=== PATIENT | female | born 1995 | race Caucasian/White ===

== ENCOUNTER 2019-04-24 07:24 | Inpatient (IN) ==
[2019-04-24] MEDS ORDERED: LACTATED RINGER'S 1,000 ML IV PRN (07:39)
[2019-04-24] MEDS ORDERED: OXYTOCIN 30 UNITS/500 ML BAG IV PRN ×2 (07:39→12:33)
--- NOTE | 2019-04-24 07:45 | History & Physical Report ---
Date of Service April 24, 2019 Assessment & Plan (1) Normal labor: fetus category one. clear srom. expectant management. anticipate . (2) IUGR (intrauterine growth restriction): efw 5-6 #. Fetus category one. Will make peds aware. History of Present Illness Chief Complaint: leaking fluid Primary Care Provider: NO PCP Patient is a 23yowf [id number] with iup at 38+weeks with affected by suspected iugr. She was in the office yesterday for prolonged monitoring and was category one. This am she noted gross rom, clear. Has continued to note some intermittent contractions. no vb. +fm. testing has overall been reassuring for this patient. labs--A+/ab-/rprnr/ri/hepb-/hiv-/gc-/ ct+ at intake/gtt nl/gbs neg/ct at 36 weeks neg Had isolated LEF on ultrasound. low risk panorama. Allergies Allergy/AdvReac Type Severity Reaction Status Date / Time No Known Drug Allergies Allergy Verified 04/23/19 15:48 Home Medications Home Medications Medication Instructions Recorded Confirmed Type prenat.vits,johnny,tly-dfio-cemyh 1 tab PO DAILY 12/04/18 04/23/19 History Patient History Family History (Updated 12/04/18 @ 14:48 by Allison Lorenzo) Father Dyslipidemia Mother Thyroid disease Sister Thyroid disease Aunt Ovarian cancer Social History (Updated 12/04/18 @ 14:50 by Allison Lorenzo) Preferred Language: [place]er marital status: Single marital status details: FOB: Prakash Mcgee (23) [phone] Current Living Situation: Significant Other Current Living Situation Comment: lives with fob, his parents, dogs, cats, family to change litter. current occupational status: employed current occupation: senior windows systems administrator. 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 History recent hx of CT, treated, neg culture at 36 weeks Review of Systems All systems reviewed & are unremarkable except as noted in HPI & below Physical Exam Constitutional: WD/WN, vitals as above Cardiovascular: Extremities: no calf tenderness and no edema Gastrointestinal (Abdomen): soft, gravid, nt Psychiatric: A+Ox3, euthymic affect Genitourinary: cx--5/90/-1 grossly ruptured toco--irregular contractions efm--125 with mod variability, small accels, no decels Results & Data Vital Signs (Past 12 Hours) Vital Signs Pulse BP 04/24/19 07:32 81 124/74 Code Status & VTE Plan VTE Prophylaxis Plan VTE Prophylaxis will be ordered: No
[2019-04-24 08:03] LABS: Hematocrit (blood only) 36.6 % (37-47); Hemoglobin 12.6 g/dL (12.0-16.0); Mean Corpuscular Hemoglobin 30.6 pg (25-34); Mean Corpuscular Volume 88.8 fL (80-100); Mean Platelet Volume 9.3 fL (7.4-10.4); Platelet Count 195 K/uL (130-400); RDW Coefficient of Variation 13.1 % (11.5-14.5); RDW Standard Deviation 42.4 fL (36.4-46.3); Red Blood Count 4.12 M/uL (4.2-5.4); White Blood Count 11.35 K/uL (4.8-10.8)
[2019-04-24 08:06] LABS: Mean Corpuscular Hgb Conc 34.4 g/dL (32-36)
[2019-04-24] MEDS ORDERED: ONDANSETRON INJ 2 MG/ML 2 ML VIAL IV PRN (09:09)
[2019-04-24] MEDS ORDERED: SUPERCREAM 0.870% 15 GM JAR EXT PRN (12:33)
[2019-04-24] MEDS ORDERED: ACETAMINOPHEN 325 MG TAB PO PRN (12:33)
[2019-04-24] MEDS ORDERED: HYDROCORTISONE ACETATE 25 MG SUPP PR PRN (12:33)
[2019-04-24] MEDS ORDERED: bisacodyL 10 MG SUPP PR PRN (12:33)
[2019-04-24] MEDS ORDERED: DIPHTHERIA/TETANUS/PERTUSSIS 0.5 ML SYR/VIAL IM ONE (12:33)
[2019-04-24] MEDS ORDERED: BENZOCAINE 20% AER SPR 82.5 GM CAN EXT PRN (12:33)
--- NOTE | 2019-04-24 13:25 | Delivery Summary ---
DATE OF OPERATION: 04/24/2019 PROCEDURE: Normal spontaneous vaginal delivery. SURGEON: Rohit Castellon MD. PREOPERATIVE DIAGNOSES: 1. Single intrauterine at 38 weeks gestational age. 2. IUGR. 3. Labor. POSTOPERATIVE DIAGNOSES: 1. Single intrauterine at 38 weeks gestational age. 2. IUGR. 3. Labor. 4. Status post delivery. ESTIMATED BLOOD LOSS: 300 mL DRAINS: None. FLUIDS: Continuous lactated ringer. URINE OUTPUT: Not measured. COMPLICATIONS: None. FINDINGS: Viable female with weight pending and Apgars of 8 and 9 at 1 and 5 minutes respectively. INDICATIONS: Agnieszka is a 23-year-old G2, P0-0-1-0, admitted at 38+ weeks gestational age for rupture of membranes in labor. At initial evaluation, the patient was found to be 5 cm dilated, 90% effaced, -1 station. She progressed in labor without further augmentation to complete-complete +1 station, at which time she felt the urge to push. The patient pushed under an hour to achieve delivery. DESCRIPTION OF PROCEDURE: The patient progressed to 10 cm dilated, 100% effaced, +2 station, pushed over intact perineum with epidural without anesthesia and delivered a viable female with weight and Apgars as noted above. Head of the delivered in JUDSON position, rest into right transverse. No nuchal cord was noted. Body and shoulders quickly followed. was noted to be vigorous immediately after delivery. A 1-minute delayed cord clamping was initiated, after which the cord was double clamped and cut. Cord blood was then obtained. Attention was then turned to deliver the placenta, which was delivered intact, 3-vessel cord, gentle cord traction. On inspection of the perineum, vagina, and cervix, there was noted to be no lacerations. Sponge and instrument counts were correct at the completion of the case. Both mother and were stable in the immediate post-delivery. I attest to the content of the Intraoperative Record and any orders documented therein. Any exception s are noted below.
[2019-04-24] MEDS: IBUPROFEN 600 MG TAB PO PRN ×2 (13:29→19:42)
[2019-04-24] MEDS ORDERED: DOCUSATE SODIUM 100 MG CAP ONE (19:38)
[2019-04-24] MEDS: DOCUSATE SODIUM 100 MG CAP PO SCH (19:42)
[2019-04-25] MEDS: IBUPROFEN 600 MG TAB PO PRN ×3 (05:08→19:44)
[2019-04-25 06:14] LABS: Hematocrit (blood only) 34.3 % (37-47); Hemoglobin 11.7 g/dL (12.0-16.0)
[2019-04-25] MEDS: DOCUSATE SODIUM 100 MG CAP PO SCH ×2 (07:59→19:44)
[2019-04-25] MEDS: PRENATAL VITAMIN 1 TAB PO SCH (07:59)
--- NOTE | 2019-04-25 08:27 | Obstetrical Progress Note ---
Date of Service April 25, 2019 Assessment & Plan (1) Normal labor: 23yo sp day 1 - Doing well. Routine care Day #:: 1 Subjective Ambulation: ambulating normally Voiding: no voiding problems Passing Gas:: Yes Diet Tolerance:: regular diet Lochia:: Small Feeding Type:: breast feeding Current Pain Level(1-10): 2 Physical Exam Constitutional WD/WN, vitals as above Respiratory normal respiratory effort; no respiratory distress and no labored breathing Gastrointestinal (Abdomen) Inspection/Auscultation: abdomen normal to inspection; abdomen not distended Percussion/Palpation: abdomen soft; abdomen nontender, no guarding and abdomen not rigid Genitourinary OB Exam Abdomen: + fundal height Fundus: + firm and + relation to umbilicus (Below); not tender and not boggy Results & Data Vital Signs (Past 12 Hours) Vital Signs Temp Pulse Resp BP 04/25/19 07:30 36.8 C 66 18 102/65
[2019-04-25] MEDS ORDERED: bisacodyL 5 MG TABEC PO SCH (20:00)
--- NOTE | 2019-04-26 06:22 | Obstetrical Progress Note ---
Date of Service <Yahaira Talamantes DO - Last Filed: 04/26/19 07:15> April 26, 2019 Assessment & Plan <Yahaira Talamantes DO - Last Filed: 04/26/19 07:15> (1) Encounter for care and examination after delivery: 23 yo PPD #2 after at 38+ weeks: - Doing well from OB standpoint; however Babygirl discharge pending Pediatrics given weight loss of 8%. - For follow up with Dr. Castellon in 6 weeks. - Answered all patient questions and went over discharge instructions. Subjective <Yahaira Talamantes DO - Last Filed: 04/26/19 07:15> Hattie is a 23 yo female ; PPD # 2 following vaginal delivery at 38+ weeks; doing well this AM; no abdominal cramping/pain; voiding well, passing gas but no BM; tolerating meals overnight, able to ambulate some within the room. Some persistent spotting this morning but improved from yesterday. Baby girl born at 5.8 lbs and was 5.1 yesterday; was encouraged to feed numerous times overnight and pt was diligent about it. Review of Systems Constitutional: denies fever, chills, sweats, headache Respiratory: denies SOB, difficulty breathing Cardiac: denies CP, chest palpitations, chest pressure Breast: denies breast pain : denies dysuria Physical Exam <Yahaira Talamantes DO - Last Filed: 04/26/19 07:15> General: patient is alert and oriented, in NAD Cardiac: +S1/S2, no murmurs rubs or gallops Respiratory: lungs CTA b/l, anteriorly and posteriorly, no wheezes rales or rhonchi, no increased work of breathing, symmetric chest rise, no respiratory distress Abdomen: soft, NT, +bowel sounds Uterus: uterine fundus firm, palpable below the level of the umbilicus Lower Extremities: no LE edema or swelling, no deep calf pain, Ricky's sign negative b/l Results & Data <Yahaira Talamantes DO - Last Filed: 04/26/19 07:15> Vital Signs (Past 12 Hours) Vital Signs Temp Pulse Resp BP Pulse Ox 04/25/19 23:20 36.7 C 87 18 107/66 95 04/25/19 19:15 36.6 C 68 20 103/68 98 Medications Administered Current Medications Acetaminophen (Tylenol) 650 mg PO Q6H PRN PRN Reason: Pain/SANCHEZ/Fever Stop: 05/24/19 12:32 Benzocaine (Dermoplast Pain Relieving [place]) 1 appln EXT PRN PRN PRN Reason: Perineal Discomfort Stop: 05/24/19 12:32 Last Admin: 04/24/19 19:43 Dose: 82.5 appln Documented by: Bisacodyl (Dulcolax) 10 mg HI DAILY PRN PRN Reason: No BM on 2nd post- day Stop: 05/24/19 12:32 Cocaine HCl (Supercream 0.870%) 1 gm EXT BID PRN PRN Reason: Hemorrhoidal Inflammation Stop: 05/08/19 12:32 Docusate Sodium (Colace) 100 mg PO DAILY@08,21 WALDEMAR Stop: 05/24/19 20:59 Last Admin: 04/25/19 19:44 Dose: 100 mg Documented by: Hydrocortisone (Anusol Hc) 25 mg HI BID PRN PRN Reason: Hemorrhoidal Inflammation Stop: 05/24/19 12:32 Lactated Ringer's (Lr) 1,000 mls @ 125 mls/hr IV .Q8H PRN; Protocol PRN Reason: L&D Protocol Stop: 04/26/19 07:38 Oxytocin (Pitocin) 30 units in 500 mls @ 333.333 mls/hr IV .Q1H30M PRN; Protocol PRN Reason: Bleeding Control Stop: 05/24/19 07:38 Last Admin: 04/24/19 12:25 Dose: 59.94 units/hr, 999 mls/hr Documented by: Oxytocin (Pitocin) 30 units in 500 mls @ 333.333 mls/hr IV .Q1H30M PRN; Protocol PRN Reason: Bleeding Control Ibuprofen (Motrin) 600 mg PO Q4H PRN PRN Reason: Pain/SANCHEZ/Cramping/Fever Stop: 05/24/19 12:32 Last Admin: 04/25/19 19:44 Dose: 600 mg Documented by: Ondansetron HCl (Zofran) 4 mg IV Q4H PRN PRN Reason: Nausea Stop: 05/24/19 09:08 Last Admin: 04/24/19 09:53 Dose: 4 mg Documented by: Manas Multivit/Owsley/Iron/Folic Ac ( Vitamin) 1 tab PO DAILY@08 WALDEMAR Stop: 05/25/19 07:59 Last Admin: 04/25/19 07:59 Dose: 1 tab Documented by: <Rohit Castellon MD - Last Filed: 04/26/19 07:49> Co-Signing Physician Notes Patient doing well and stable for discharge Resident Activity Tracking <Yahaira Talamantes DO - Last Filed: 04/26/19 07:15> Resident Involvement: Resident Care Provided Care Provided: OB Delivery
[2019-04-26] MEDS: IBUPROFEN 600 MG TAB PO PRN (06:56)
[2019-04-26] MEDS: PRENATAL VITAMIN 1 TAB PO SCH (08:04)
[2019-04-26] MEDS: DOCUSATE SODIUM 100 MG CAP PO SCH (08:04)
== END 2019-04-26 10:32 | disposition home or self-care (01) | DRG 807 ==
LOC: OPB 07:24 → 4S1 07:29 → 4S2 16:32

== ENCOUNTER 2021-01-12 07:40 | Inpatient (IN) ==
[2021-01-12] MEDS ORDERED: OXYTOCIN 30 UNITS/500 ML BAG IV PRN ×3 (07:52→15:10)
[2021-01-12] MEDS ORDERED: LACTATED RINGER'S 1,000 ML IV PRN (08:06)
[2021-01-12 08:34] LABS: Hematocrit (blood only) 33.8 % (37-47); Hemoglobin 11.5 g/dL (12.0-16.0); Mean Corpuscular Hemoglobin 28.8 pg (25-34); Mean Corpuscular Volume 84.7 fL (80-100); Mean Platelet Volume 9.2 fL (7.4-10.4); Platelet Count 205 K/uL (130-400); RDW Coefficient of Variation 13.6 % (11.5-14.5); RDW Standard Deviation 41.6 fL (36.4-46.3); Red Blood Count 3.99 M/uL (4.2-5.4)
--- NOTE | 2021-01-12 10:18 | History & Physical Report ---
Date of Service January 12, 2021 Assessment & Plan (1) Encounter for induction of labor: Plan: Admit pt to L&D for induction of labor. Induction augmented with pitocin. Pt is gbs neg. Arom as indicated. Epidural on demand. Anticipate . Admission and Anticipated Discharge Date Admission Date: January 12, 2021 History of Present Illness Chief Complaint: Induction of Labor Primary Care Provider: NO PCP Hattie Atkinson is a 25 y/o female presenting to L&D for induction of labor due to IUGR. Pt has been feeling fm. GBS neg. No vb or discharge. No contractions as of yet. OB Labs: Blood Type A Positive 07/18/20 Antibody Screen NEGATIVE 07/18/20 Hemoglobin 11.8 g/dL (12.0-16.0) L 10/31/20 Hematocrit 35.8 % (37-47) L 10/31/20 Mean Corpuscular Volume 86.4 fL (80-100) 07/18/20 Platelet Count 273 K/uL (130-400) 07/18/20 Rubella IgG Antibody Immune (Immune) 07/18/20 Rapid Plasma Reagin Nonreactive (Nonreactive) 07/18/20 Hepatitis B Surface Antigen Neg (Neg) 07/18/20 HIV (1&2) Ab and P24 Ag, 4th Gener Neg (Neg) 07/18/20 Glucose 1 Hour 50 gm Load 76 mg/dl (70-130) 10/31/20 OB Optional Labs: Chlamydia trachomatis RNA NOT DETECTED (NOT DETECTED) 07/18/20 Neisseria gonorrhoeae RNA NOT DETECTED (NOT DETECTED) 07/18/20 Labs Reviewed: declines cfdna - SLN declines cf/sma - SLN declines quad/afp - SLN Allergies Allergy/AdvReac Type Severity Reaction Status Date / Time No Known Drug Allergies Allergy Unknown Verified 01/11/21 14:19 Home Medications Medication Instructions Recorded Confirmed Type prenat.vits,johnny,bjc-vbau-ttqmi 1 tab PO DAILY 12/04/18 01/12/21 History ondansetron HCl 4 mg tablet 4 mg PO Q6H PRN #20 tab 07/13/20 01/12/21 Rx (Zofran) Patient History Medical History (Updated 01/12/21 @ 10:36 by Sorin Lau DO) Chicken pox Chlamydia Surgical History History of nasal surgery S/P wisdom tooth extraction Family History (Updated 07/13/20 @ 11:03 by Sonia Wang, OSMEL) Father Dyslipidemia Mother Thyroid disease Cancer Sister Thyroid disease Aunt Ovarian cancer Grandfather (Maternal) Prostate cancer Denies family history of Breast cancer Colorectal cancer Social History (Updated 07/13/20 @ 11:05 by Sonia Wang, OSMEL) Smoking Status: Never smoker Second Hand Exposure: No; Do You Dip or Chew Tobacco: No; Hx Alcohol Use: No Hx Substance Use: No Preferred Language: Mongolian Communication Ability: Effective Front End Ui Developer Required: No Beliefs That Will Affect Care: None marital status: marital status details: FOB: Prakash Mcgee (24) [phone] Current Living Situation: Family Current Living Situation Comment: Lives at home with and daughter. current occupational status: employed current occupation: administrative manager. at [employer] Other Information That Helps Us Care for You: No Feels Safe at Home: Yes Safety Concerns: Feels Safe At This Time Assistive Devices: None Review of Systems All systems reviewed & are unremarkable except as noted in HPI & below Physical Exam Physical Exam: General: Alert, oriented, no acute distress Cardiac: Regular rate and rhythm, normal S1, S2. No murmurs appreciated. Respiratory: Clear to auscultation b/l with good air flow entry, symmetric chest rise and fall. No wheezes or crackles. No increased work of breathing or accessory muscle use Abdomen: Gravid, soft, nontender. No guarding or CVA tenderness Skin: No rashes or lesions Extremities: Warm, dry, well-perfused with capillary refill <2s b/l. No lower extremity edema, erythema or swelling. Negative Ricky's sign b/l. Genitourinary: normal external appearance OB Exam Abdomen: + estimated weight (5-6lbs) Manual OB Exam: + cervical dilation 4 cm, + cervical effacement 80% and + station -2 OB Exam Monitor Tracing: + external FHT monitor used and + category I Results & Data ([place]) Vital Signs (Past 12 Hours) Vital Signs Temp Pulse Resp BP 01/12/21 10:00 84 109/71 01/12/21 09:00 94 H 112/74 01/12/21 08:59 85 119/76 01/12/21 08:26 36.6 C 96 H 16 118/71 01/12/21 08:09 96 H 118/71 Supervising Physician Co-Signing Physician Notes Resident Physician Supervision Note: I interviewed and examined the patient. Discussed with Dr. Lau and agree with findings and plan as documented in the note. Any exceptions or clarifications are listed here: [None] Documented By: Nat Lucero MD, FACOG
[2021-01-12] MEDS ORDERED: CALCIUM CARBONATE 500 MG CHEWABLE TAB PO PRN (11:15)
--- NOTE | 2021-01-12 12:29 | Labor Progress Brief Note ---
Date of Service January 12, 2021 Subjective Doing ok, some cramps Assessment & Plan (1) IUGR (intrauterine growth restriction) affecting care of mother: Plan: 25 y/o at 39 1/7 wga presenting for IOL for FGR VSS Fetus cat 1 Labor - pit at 10, now s/p arom. Continue augmentation GBS neg epidural prn, went unmedicated previously Admission and Anticipated Discharge Date Admission Date: January 12, 2021 Physical Exam Genitourinary: Manual OB Exam: + cervical dilation (4-5), + cervical effacement 80% and + station -2 OB Exam Monitor Tracing: + external FHT monitor used, + external uterine monitor used (q3-5) and + category I (125/mod/+accel/-decel) Results & Data ([facility]) Vital Signs (Past 12 Hours) Vital Signs Temp Pulse Resp BP 01/12/21 12:01 83 103/60 01/12/21 11:01 65 106/64 01/12/21 10:00 84 109/71 01/12/21 09:00 94 H 112/74 01/12/21 08:59 85 119/76 01/12/21 08:26 97.9 F 96 H 16 118/71 01/12/21 08:09 96 H 118/71 Coding Level of Care Code None Diagnoses IUGR (intrauterine growth restriction) affecting care of mother O36.5990
[2021-01-12] MEDS ORDERED: ONDANSETRON INJ 2 MG/ML 2 ML VIAL IV PRN (13:45)
[2021-01-12] MEDS ORDERED: IBUPROFEN 600 MG TAB PO ONE (15:02)
--- NOTE | 2021-01-12 15:02 | Delivery Summary ---
Vaginal Delivery Summary Date of Service January 12, 2021 Vaginal Delivery Summary [facility] PREOPERATIVE DIAGNOSIS: 1. Single intrauterine at 39 1/7 wga 2. growth restriction POSTOPERATIVE DIAGNOSIS: 1. Single intrauterine at 39 1/7 wga 2. growth restriction 3. Delivered PROCEDURE: 1. Normal spontaneous vaginal delivery. SURGEON: Emely Villasenor MD ANESTHESIA: None ESTIMATED BLOOD LOSS: 300 mL FLUIDS: Continuous LR. URINE OUTPUT: None. COMPLICATIONS: None. CONDITION: Stable. INDICATIONS: 25 y/o at 39 1/7 wga presented for IOL for growth restriction. She was started on pitocin. She underwent artificial rupture of membranes and rapidly progressed to complete and desired to push FINDINGS: A viable male , weight pending with Apgars of 8 and 9 at 1 and 5 minutes respectively. SPECIMEN: Cord blood. OPERATIVE REPORT: The patient progressed to 10 cm, 100% effaced and +2 station, pushed over intact perineum with anesthesia to deliver a viable male infant, weight and Apgars as above. Brow presentation was noted as delivering with mentum anterior direction. Loose nuchal cord was present and delivered through. Body and shoulders were delivered without difficulty. was delivered to maternal abdomen and nursing staff. Delayed cord clamping was performed for 60 seconds. Cord was clamped and cut. Cord blood was obtained. Placenta delivered spontaneously intact with 3-vessel cord. IV oxytocin and fundal massage were given for excellent hemostasis. Vagina, cervix, perineum, and placenta were inspected. No lacerations were noted. Sponge and needle counts correct x2. No sponges were left behind. Mother and stable in immediate period. [facility] Vaginal Delivery Charge Vaginal Delivery Codes: 30715 global code for the antepartum, delivery, and post- Delivery Type Details: [facility]
[2021-01-12] MEDS ORDERED: BENZOCAINE 20% AER SPR 82.5 GM CAN EXT PRN (15:10)
[2021-01-12] MEDS ORDERED: bisacodyL 10 MG SUPP PR PRN (15:10)
[2021-01-12] MEDS ORDERED: SUPERCREAM 0.870% 15 GM JAR EXT PRN (15:10)
[2021-01-12] MEDS ORDERED: HYDROCORTISONE ACETATE 25 MG SUPP PR PRN (15:10)
[2021-01-12] MEDS ORDERED: ACETAMINOPHEN 325 MG TAB PO PRN (15:10)
[2021-01-12] MEDS ORDERED: DIPHTHERIA/TETANUS/PERTUSSIS 0.5 ML SYR/VIAL IM ONE (15:10)
[2021-01-12] MEDS ORDERED: LACTATED RINGER'S 1,000 ML IV SCH (15:15)
[2021-01-12] MEDS: IBUPROFEN 600 MG TAB PO PRN (20:15)
[2021-01-12] MEDS: DOCUSATE SODIUM 100 MG CAP PO SCH (20:15)
[2021-01-13] MEDS: IBUPROFEN 600 MG TAB PO PRN ×4 (01:29→14:09)
--- NOTE | 2021-01-13 06:34 | Obstetrical Progress Note ---
Date of Service <Sorin Lau DO - Last Filed: 01/13/21 06:58> January 13, 2021 Assessment & Plan <Sorin Lau - Last Filed: 01/13/21 06:58> (1) Encounter for care and examination after delivery: 25 yo PPD 1 s/p at 39weeks -Continue routine care; complicated by IUGR. D/C today, 24 hours post delivery. -Vitals reviewed- HDS, afebrile -A+, GBS-, Rubella immune -Encourage ambulation, regular diet -Pain control with ibuprofen, acetaminophen PRN -Encouraged -F/u in 6 weeks with OB <Emely Villasenor MD - Last Filed: 01/13/21 08:15> (1) Encounter for care and examination after delivery: Subjective <Sorin Lau - Last Filed: 01/13/21 06:58> Ambulation: ambulating normally Voiding: no voiding problems Passing Gas:: Yes Diet Tolerance:: regular diet Lochia:: Moderate Feeding Type:: breast feeding Current Pain Level(1-10): 4 PPD 1 s/p . Patient seen and examined at bedside. Reports no acute overnight events Review of Systems All systems reviewed & are unremarkable except as noted in HPI & below Physical Exam <Sorin Lau DO - Last Filed: 01/13/21 06:58> General: Alert, oriented, no acute distress Cardiac: Regular rate and rhythm, normal S1, S2. No murmurs appreciated. Respiratory: Clear to auscultation b/l with good air flow entry, symmetric chest rise and fall. No wheezes or crackles. No increased work of breathing or accessory muscle use Abdomen: Soft, nontender, nondistended. Fundus firm and palpable at 1 cm below umbilicus. No guarding or rebound. Skin: No rashes or lesions Extremities: Warm, dry, well-perfused with capillary refill <2s b/l. No lower extremity edema, erythema or swelling. Negative Ricky's sign b/l. Results & Data ([facility]) <Sorin Lau - Last Filed: 01/13/21 06:58> Vital Signs (Past 12 Hours) Vital Signs Temp Pulse Resp BP Pulse Ox 01/13/21 04:50 36.6 C 74 16 97/63 L 98 01/13/21 00:00 36.7 C 75 17 114/67 97 01/12/21 19:58 36.4 C L 71 18 109/70 98 <Emely Villasenor MD - Last Filed: 01/13/21 08:15> Co-Signing Physician Notes Resident Physician Supervision Note: I interviewed and examined the patient. Discussed with Dr. Lau and agree with findings and plan as documented in the note. Any exceptions or clarifications are listed here: PP1 s/p , meeting milestones. Stable for d/c today after 24 hours Documented By: Emely Villasenor MD
[2021-01-13 06:52] LABS: Hematocrit (blood only) 30.9 % (37-47); Hemoglobin 10.3 g/dL (12.0-16.0); Mean Corpuscular Hemoglobin 28.6 pg (25-34); Mean Corpuscular Hgb Conc 33.3 g/dL (32-36); Mean Corpuscular Volume 85.8 fL (80-100); Mean Platelet Volume 9.4 fL (7.4-10.4); Platelet Count 194 K/uL (130-400); RDW Coefficient of Variation 13.7 % (11.5-14.5); RDW Standard Deviation 42.5 fL (36.4-46.3); White Blood Count 14.14 K/uL (4.8-10.8)
[2021-01-13] MEDS ORDERED: PRENATAL VITAMIN 1 TAB PO SCH (08:00)
[2021-01-13] MEDS ORDERED: FERROUS SULFATE 325 MG TAB PO SCH (09:00)
[2021-01-13] MEDS: DOCUSATE SODIUM 100 MG CAP PO SCH (09:17)
[2021-01-13] MEDS ORDERED: bisacodyL 5 MG TABEC PO SCH (20:00)
== END 2021-01-13 15:50 | disposition home or self-care (01) | DRG 807 ==
LOC: 4S1 07:40 → 4S2 17:36

== ENCOUNTER 2022-10-10 07:19 | Inpatient (IN) ==
--- NOTE | 2022-10-10 08:14 | History & Physical Report ---
Date of Service October 10, 2022 Assessment & Plan (1) Encounter for induction of labor: Plan: - Will admit to L&D for IOL. - monitoring started, CBC and COVID test ordered. - Started LR @125ml/hr. - Declines epidural at this time. - Start pit at 1 and increase by 2. - AROM at time of physical exam. (2) IUGR (intrauterine growth restriction) affecting care of mother: Plan: - IUGR in previous 2 pregnancies. Admission and Anticipated Discharge Date Admission Date: October 10, 2022 History of Present Illness Chief Complaint: Induction of Labor Primary Care Provider: NO PCP Patient is a 27 y/o at 39w 1d confirmed via ultrasound. Here for induction of labor. Complications with this include prior pregnancies c/b IUGR. Has been attending OB appointments regularly. Currently taking no medications. Contractions: Started last night around 1700 Fluid or Blood loss: none Movement: active Labs - Blood type: A+ - Antibody screen: negative - H.9 - Hct: 32.8 - Plt: 264 - Rubella: immune - VDRL/RPR: nonreactive - Gonorrhea: negative - Chlamydia: negative - HIV: negative - HbSAg: negative - GBS: negative - Glucose tolerance x 2 Allergies Allergy/AdvReac Type Severity Reaction Status Date / Time No Known Drug Allergies Allergy Unknown Verified 10/10/22 07:36 Home Medications Medication Instructions Recorded Confirmed Type prenat.vits,johnny,ryx-tfvl-xmraz 1 tab PO DAILY 12/04/18 10/10/22 History ondansetron 4 mg disintegrating 4 mg PO Q8H #30 tabs 04/17/22 10/10/22 Rx tablet Patient History Medical History (Updated 10/10/22 @ 08:14 by Jordan Drew DO) Chicken pox Chlamydia as a teenager IUGR (intrauterine growth restriction) affecting care of mother 1st and 2nd Surgical History History of nasal surgery S/P wisdom tooth extraction Family History Father Dyslipidemia Mother Thyroid disease Cancer Sister Thyroid disease Aunt Ovarian cancer Grandfather (Maternal) Prostate cancer Denies family history of Breast cancer Colorectal cancer Social History (Updated 10/10/22 @ 07:35 by Lissett Christopher RN) Smoking Status: Never smoker Second Hand Exposure: No; Do You Dip or Chew Tobacco: No; Hx Alcohol Use: No Hx Substance Use: No Preferred Language: Polish Communication Ability: Effective Plywood Layup Line Core Layer Required: No Beliefs That Will Affect Care: None marital status: marital status details: FOB: Prakash Mcgee (26) [phone] Current Living Situation: Family Current Living Situation Comment: Lives at home with 2 children,2 cats, 1dog, spouse to change litter current occupational status: employed current occupation: program cord.. at [employer] Feels Safe at Home: Yes Safety Concerns: Feels Safe At This Time Assistive Devices: Contacts Review of Systems Denies fever, chills, sweats Denies shortness of breath, difficulty breathing, chest pain, palpitations, chest pressure. Denies breast pain. Denies dysuria. Denies headache or changes in vision. Physical Exam Physical Exam: General: Alert, oriented. No acute distress. Cardiac: Regular rate and rhythm, no murmurs/rubs/gallops. Respiratory: Clear to auscultation bilaterally a/p, no wheezes/rales/rhonchi. No increased work of breathing. Symmetrical chest rise. No respiratory distress. Abdomen: Gravid; 6-7 EFW; cat 1 FHTs; Position: Cephalic position Pelvic: Dilation 6cm; Effacement 100; Station [address] Wick Lower Extremities: No lower extremity edema or swelling. No deep calf pain. Ricky's negative bilaterally Results & Data Vital Signs (Past 12 Hours) Vital Signs Temp Pulse Resp BP 10/10/22 07:30 18 10/10/22 07:30 36.7 C 18 10/10/22 07:28 91 H 126/74 Supervising Physician Co-Signing Physician Notes Resident Physician Supervision Note: I was present with Dr. Drew during the history and exam. I discussed the case with the resident and agree with the findings and plan as documented in the note. Any exceptions or clarifications are listed here: 27yo at 39wks egvinnie presents for planned elective induction of labor. Overnight had some ctx. No rom, no vb. +FM. PNC uncomplicated, did have aga u/s with small fh and prior pregnancies complicated by iugr. Rh pos, ri, gbs neg. Abd soft gravid nt efw 6-7#. ext no edema. sve 6/100/0 arom clear. fhts categ 1. admit, iv, labs. pitocin induction. anticip . Documented By: Kelli Wick MD, FACOG Resident Activity Tracking Resident Involvement: Resident Care Provided Care Provided: OB Delivery
[2022-10-10] MEDS ORDERED: LIDOCAINE 1% LOCAL 20 ML VIAL INFIL PRN (08:17)
[2022-10-10] MEDS ORDERED: OXYTOCIN 30 UNITS/500 ML BAG IV PRN ×3 (08:17→11:36)
[2022-10-10] MEDS ORDERED: LACTATED RINGER'S 1,000 ML IV PRN (08:17)
[2022-10-10 08:54] LABS: Hematocrit (blood only) 32.7 % (37.0-47.0); Hemoglobin 11.2 g/dl (12.0-16.0); Mean Corpuscular Hemoglobin 28.6 pg (25.0-34.0); Mean Corpuscular Hgb Conc 34.3 g/dL (32.0-36.0); Mean Corpuscular Volume 83.4 fL (80.0-100.0); Mean Platelet Volume 8.8 fL (9.4-12.4); Platelet Count 254 K/uL (130-400); RDW Coefficient of Variation 13.1 % (11.5-14.5); RDW Standard Deviation 39.6 fL (36.4-46.3); Red Blood Count 3.92 M/uL (4.20-5.40); White Blood Count 15.28 K/ul (4.8-10.8)
--- NOTE | 2022-10-10 10:59 | Delivery Summary ---
Vaginal Delivery Summary Date of Service October 10, 2022 Vaginal Delivery Summary The patient dilated to complete and pushed to deliver a viable female Apgars 9 and 9 via over intact perineum. Loose nuchal x 1 reduced. Mouth and nose bulb suctioned at perineum. Shoulders and body delivered with ease. was vigorous and crying at . Cord clamped at 30 seconds of life and to maternal abdomen where the cord was then doubly clamped and cut. Placenta delivered spontaneously and intact, three-vessel cord. Hemostasis achieved with dilute pitocin and uterine massage. Cervix and sulci intact. EBL 200 cc. Mother and baby stable in recovery. [facility] Vaginal Delivery Charge Delivery Type Details:
[2022-10-10] MEDS ORDERED: DIPHTHERIA/TETANUS/PERTUSSIS Vaccine (Tdap, Age 7+yrs) 0.5mL SYR/VL IM ONE (11:36)
[2022-10-10] MEDS ORDERED: bisacodyL 10 MG SUPP PR PRN (11:36)
[2022-10-10] MEDS ORDERED: BENZOCAINE 20% AER SPR 82.5 GM CAN EXT PRN (11:36)
[2022-10-10] MEDS ORDERED: HYDROCORTISONE ACETATE 25 MG SUPP PR PRN (11:36)
[2022-10-10] MEDS ORDERED: ACETAMINOPHEN 325 MG TAB PO PRN (11:36)
[2022-10-10] MEDS: DOCUSATE SODIUM 100 MG CAP PO SCH (21:02)
[2022-10-11] MEDS: IBUPROFEN 600 MG TAB PO PRN ×2 (03:29→07:56)
--- NOTE | 2022-10-11 06:30 | Obstetrical Progress Note ---
Date of Service <Jordan Drew DO - Last Filed: 10/11/22 06:30> October 11, 2022 Assessment & Plan <Jordan Drew DO - Last Filed: 10/11/22 06:30> (1) state: - Feels well today. Eating well, voiding well, ambulating well. - Pain well controlled with ibuprofen 600mg Q4H PRN - Routine care -- OOB, ambulation, diet progression as tolerated - After discharge will have 6 week follow-up with Dr. Wick. - Will DC today. Day #:: 1 <Kelli Wick MD, FACOG - Last Filed: 10/11/22 07:14> (1) state: Subjective <Jordan Drew DO - Last Filed: 10/11/22 06:30> Ambulation: ambulating normally Voiding: no voiding problems Passing Gas:: Yes Diet Tolerance:: regular diet Lochia:: Small Feeding Type:: breast feeding Current Pain Level(1-10): 5 Review of Systems Denies fever, chills, sweats Denies shortness of breath, difficulty breathing, chest pain, palpitations, chest pressure. Denies breast pain. Denies dysuria. Denies headache or changes in vision. Physical Exam <Jordan Drew DO - Last Filed: 10/11/22 06:30> General: Alert, oriented. No acute distress. Cardiac: Regular rate and rhythm, no murmurs/rubs/gallops. Respiratory: Clear to auscultation bilaterally a/p, no wheezes/rales/rhonchi. No increased work of breathing. Symmetrical chest rise. No respiratory distress. Abdomen: Soft, nontender, nondistended. Bowel sounds present. Uterus: Uterine fundus firm, palpable 2 cm below umbilicus. Lower Extremities: No lower extremity edema or swelling. No deep calf pain. Ricky's negative bilaterally. Results & Data <Jordan Drew DO - Last Filed: 10/11/22 06:30> Vital Signs (Past 12 Hours) Vital Signs Temp Pulse Resp BP Pulse Ox O2 Del Method 10/11/22 03:32 36.6 C 61 14 98/62 L 98 Room Air 10/10/22 23:38 37.0 C 89 16 91/46 L 95 Room Air 10/10/22 19:15 36.6 C 82 16 102/67 98 Room Air <Kelli Wick MD, FACOG - Last Filed: 10/11/22 07:14> Co-Signing Physician Notes Resident Physician Supervision Note: I was present with Dr. Drew during the history and exam. I discussed the case with the resident and agree with the findings and plan as documented in the note. Any exceptions or clarifications are listed here: stable, desires dc home. instructions reviewed. f/u 6 wk pp check. abd soft ff 3 down nt. ext nt calves. Documented By: Kelli Wick MD, FACOG Resident Activity Tracking <Jordan Drew, DO - Last Filed: 10/11/22 06:30> Resident Involvement: Resident Care Provided Care Provided: OB Delivery
[2022-10-11] MEDS: DOCUSATE SODIUM 100 MG CAP PO SCH (07:56)
[2022-10-11] MEDS ORDERED: PRENATAL VITAMIN 1 TAB PO SCH (08:00)
[2022-10-11] MEDS ORDERED: NON-FORMULARY MEDICATION (Prenat.Vits,Cal,Min-Iron-Folic tablet) PO SCH (09:00)
[2022-10-11] MEDS ORDERED: bisacodyL 5 MG TABEC PO SCH (20:00)
== END 2022-10-11 12:55 | disposition home or self-care (01) | DRG 807 ==
LOC: 4S1 07:19 → 4E2 14:05